=== PATIENT | male | born 1990 | race Caucasian/White ===

== ENCOUNTER 2019-07-06 19:54 | Emergency (ER) | payer OTHER, SELFPAY ==
[2019-07-06 20:01] VITALS: BP 154/93; PULSE 74; RESP 14; TEMP 36.7; O2SAT 97; BMI 26.4
--- NOTE | 2019-07-06 20:01 | ED.GENADULT ---
HPI - General Adult General Chief complaint: Fever Stated complaint: low grade fever, cardiac history Time Seen by Provider: 07/06/19 19:59 Source: patient Mode of arrival: Ambulatory Limitations: no limitations History of Present Illness HPI narrative: 28-year-old male arrives to the emergency department for evaluation of a fever. Patient states that starting this afternoon he started to not feel very well. Had no specific symptoms. He did take a nap. When he woke up they took his temperature at home. His states that his initial temperature was 96? and a follow-up temperature was 97?. They called the nurse advice line at [facility] that advised to come to the emergency department. Patient states that he has a prior cardiac history of atrial fibrillation. Related Data Allergies Allergy/AdvReac Type Severity Reaction Status Date / Time No Known Drug Allergies Allergy Verified 07/06/19 20:01 Review of Systems Constitutional Constitutional: Reports fatigue and Reports fever(s) Cardiovascular Cardiovascular: Denies chest pain and Denies dyspnea Respiratory Respiratory: Denies cough and Denies dyspnea Gastrointestinal Gastrointestinal: Denies abdominal pain, Denies nausea and Denies vomiting Genitourinary Genitourinary: Denies dysuria Musculoskeletal Musculoskeletal: Denies myalgias and Denies arthralgias Integumentary/Breasts Skin/Breast: Denies lesions and Denies rash Neurologic Neurologic: Denies behavioral changes Psychiatric Psychiatric: Denies behavioral changes Endocrine Endocrine: Reports fatigue Hematologic/Lymphatic Hematologic/Lymphatic: Denies easy bleeding and Denies easy bruising Patient History Medical History Atrial fibrillation (Acute) Social History Smoking Status: Unknown if ever smoked Exam Initial Vital Signs Initial Vital Signs: Vital Signs Temperature 98.0 F 07/06/19 20:01 Pulse Rate 74 07/06/19 20:01 Respiratory Rate 14 07/06/19 20:01 Blood Pressure 154/93 H 07/06/19 20:01 Pulse Oximetry 97 07/06/19 20:01 Const General: cooperative, comfortable and well developed Orientation: alert and awake HENMT Head: normal to inspection and normocephalic Resp Effort & Inspection: normal respiratory effort Auscultation: clear to auscultation bilaterally Cardio Rate: regular rate Rhythm: regular rhythm Pulses: radial pulses present GI Inspection: non-distended Palpation: soft and No firm Skin Lesions: no lesions Rashes: no rashes Neuro General: alert and awake Cognition: normal cognition Speech: speech normal Extrem General: normal to inspection and capillary refill normal Psych Appearance: grossly normal and well kempt Course Vital Signs Vital signs: Vital Signs - 8 hr 07/06/19 20:01 Temperature 98.0 F Pulse Rate 74 Respiratory Rate 14 Blood Pressure 154/93 H Pulse Oximetry 97 Medical Decision Making MDM Narrative Medical decision making narrative: Patient is afebrile the emergency department. Not in atrial fibrillation. No specific symptoms concerning for cellulitis, pneumonia, intra-abdominal surgical pathology, meningitis, urinary tract infection. Will hold on further workup for now. Will hold on antibiotics for now. Patient was given return precautions and follow-up instructions. He expressed understanding and agreement plan. Discharge Plan Departure Patient Disposition: Home Clinical Impression: Malaise Discharge Date/Time: 07/06/19 20:20 Instructions: DI for Fever (Symptom) -- Adult Activity Restrictions/Additional Instructions: Your heart rate was normal here in the ER. There were no specific abnormal findings on your exam. I do recommend Tylenol for the body aches. Contact your primary provider for follow-up. Return to the emergency department for any new or worsening symptoms
== END 2019-07-06 20:20 | disposition home or self-care (01) ==
PROVIDERS: Emergency Provider Emergency Medicine
DX: R53.81 Other malaise (principal); R50.9 Fever, unspecified
CPT/HCPCS: 99282

== ENCOUNTER → 2021-04-23 13:28 | Outpatient (CLI) | payer OTHER, SELFPAY ==
[2021-04-23 16:30] LABS: COVID-19 CEPHEID PCR (VTM/NP) POSITIVE (Negative)
== END ==
PROVIDERS: Visit Provider Physician Assistant
DX: U07.1 COVID-19 (principal)
CPT/HCPCS: U0003

== ENCOUNTER 2021-05-24 18:41 | Emergency (ER) | payer OTHER, SELFPAY ==
[2021-05-24 18:54] VITALS: BP 171/109; PULSE 95; RESP 17; TEMP 36.8; O2SAT 99; BMI 29.1
[2021-05-24 19:28] LABS: COVID19 -Nasal RAPID Negative (Negative)
--- NOTE | 2021-05-24 20:18 | ED.SOB ---
HPI - SOB/Dyspnea General Chief Complaint: Shortness of Breath/Dyspnea Stated Complaint: SOB, Just Had COVID Last Month Time Seen by Provider: 05/24/21 20:08 Source: patient Mode of arrival: Ambulatory History of Present Illness HPI Narrative: Patient is a 30-year-old male with recent diagnosis of KIMBERLEY and started on CPAP 1 week ago presenting today with shortness of breath that started today. He had COVID in March he got his COVID vaccination last week. He denies fever or chills. He says today while playing with his [id number] was getting short of breath with very minimal exertion. He denies fever or cough. No hemoptysis. No recent travel no prior history of DVT or PE. He denies any significant chest discomfort. He does have some intermittent pain that is reproducible with movement. Lots of stress at home none they have a just released from the NICU. He spent 2 weeks in the NICU for pulmonary hypertension. They were not allowed to see him because they both had COVID.. He noted that his blood pressure was high thinking that it was from stress for Related Data Allergies Allergy/AdvReac Type Severity Reaction Status Date / Time No Known Drug Allergies Allergy Verified 07/06/19 20:01 Review of Systems Review of Systems Narrative: GENERAL: Denies chills, fatigue, malaise, fever, sweats, travel HEENT: Denies sinus pain, ear pain, sore throat, difficulty swallowing, neck pain RESPIRATORY: See HPI CARDIOVASCULAR: Denies chest pain, palpitations, orthopnea, edema GASTROINTESTINAL: Denies nausea, vomiting, abdominal pain, diarrhea, constipation, melena. : Denies dysuria, frequency, incontinence, hematuria, urinary retention, flank pain. MUSCULOSKELETAL: Denies weakness, joint pain, or bony pain SKIN: No rash, no erythema, no pruritus NEUROLOGIC: Denies weakness, dizziness, headache, numbness, change in speech, confusion PSYCHIATRIC: No concerning psychosocial issues. 12 point review of systems is negative except for those stated above and HPI Patient History Medical History (Updated 05/24/21 @ 21:03 by Yu Stoll DO) Atrial fibrillation Social History Smoking Status: Unknown if ever smoked Smoking Status: Unknown if ever smoked alcohol intake frequency: holidays/special occasions only Substance Use Type: does not use Exam Initial Vital Signs Initial Vital Signs: Vital Signs Temperature 98.2 F 05/24/21 18:54 Pulse Rate 95 H 05/24/21 18:54 Respiratory Rate 17 05/24/21 18:54 Blood Pressure 171/109 H 05/24/21 18:54 Pulse Oximetry 99 05/24/21 18:54 GENERAL: Alert well-appearing 30-year-old in no acute distress. HEENT: Head atraumatic,EOMI, pupils reactive, face symmetric, moist mucous membranes CARDIOVASCULAR: Regular rate and rhythm without murmurs, rubs or gallops. Pain left-sided chest S reproducible palpation RESPIRATORY: Breath sounds equal bilaterally, no wheezes rales or rhonchi. ABDOMEN: Soft, nontender. Normoactive bowel sounds all 4 quadrants. No guarding or rebound. EXTREMITIES: Normal range of motion, no clubbing or edema. Neurovascularly intact NEUROLOGICAL: Alert and oriented x4.Normal gait and speech. SKIN: Warm, dry, no laceration, no petechiae, no rashes or lesions. Scores PERC Score Age greater than or equal to 50 years: No Heart rate greater than or equal to 100 bpm: No Room Air O2 Sat less than 95%: No Unilateral leg swelling: No Recent trauma or surgery: No Hemoptysis: No Prior PE or DVT: No Hormone Use: No Total PERC Score: 0 Course Orders Ordered: ED Orders 05/24/21 18:50 COVID19 -Nasal swab/Pre-Proc Stat 05/24/21 19:21 EKG-12 Lead Stat 05/24/21 20:19 XR chest 2V Stat Discontinued Medications Albuterol (Albuterol Hfa Prepack) 1 box [facility] Stop: 05/24/21 20:20 Last Admin: 05/24/21 20:46 Dose: 1 box Documented by: HARLEY Vital Signs Vital signs: Vital Signs - 8 hr 05/24/21 18:54 05/24/21 21:05 Temperature 98.2 F Pulse Rate 95 H 70 Respiratory Rate 17 18 Blood Pressure 171/109 H 151/80 H Pulse Oximetry 99 99 MDM - SOB/Dyspnea Lab Data Labs: Lab Results 05/24/21 Range/Units 18:50 SARS-CoV-2 (PCR) Negative (Negative) Imaging Data Chest x-ray: Radiologist's Impression: PROCEDURE:? XR CHEST 2V ? INDICATIONS:? short of breath ? TECHNIQUE:? 2 views of the chest were acquired.? ? COMPARISON:? None. ? FINDINGS:? ? Surgical changes and devices:? None.? ? Lungs and pleura:? Lungs are clear.? No pleural effusions or pneumothorax.? ? Mediastinum:? Mediastinal contours are normal.? Heart size is normal.? ? Bones and chest wall:? No suspicious bony abnormalities.? Soft tissues appear unremarkable.? ? IMPRESSION:? No acute cardiopulmonary disease. ? ? Dictated by: Edwardo White M.D. on 05/24/2021 at 20:32 ? ? ECG Data Interpretation: Normal sinus rhythm rate 87 MN interval 144 QRS [address] changes no T-wave inversion MDM Narrative Medical decision making narrative: Patient is complaining of some increased shortness of breath with minimal exertion today. He noticed and blood pressure was a little bit elevated here he thinks that might be contributing. He has no fever or chills. He has a negative PERC. He is not tachycardic or hypoxic care. No recent traveling or increased risk for pulmonary embolism. He is feeling little bit better after the albuterol blood pressure has improved. He does not really have any significant chest discomfort he says he has some mild all left-sided pain but it is definitely reproducible and worse with movement unlikely to be acute coronary syndrome. He is under lot of stress at home. His baby was just released from the NICU have another toddler at home as well. At this point he is overall feeling better and feels ready and able to. Discharge Plan Departure Patient Disposition: Home Clinical Impression: Elevated blood pressure reading Instructions: Essential Hypertension Activity Restrictions/Additional Instructions: *You have been diagnosed with elevated blood pressure *What to do: Shortness of breath may be related to a variety of things. There is no evidence of pneumonia. Her COVID test is negative. It may be related to stress. Please monitor blood pressure at home and record it. He may need adjustment in her blood pressure medication. *Continue to take medications as directed Albuterol inhaler 1-2 puffs every 4 hours only if needed for shortness of breath and only if it helps *Follow up with your primary care provider in 2-3 days *Return to ER if you should have increasing shortness of breath, worsening chest pain, fever or any new, worsening or concerning symptoms Referrals: Miscellaneous,[facility] [Primary Care Provider] -
--- NOTE | 2021-05-24 20:19 | DI.RAD.S_ITS ---
PROCEDURE: XR CHEST 2V INDICATIONS: short of breath TECHNIQUE: 2 views of the chest were acquired. COMPARISON: None. FINDINGS: Surgical changes and devices: None. Lungs and pleura: Lungs are clear. No pleural effusions or pneumothorax. Mediastinum: Mediastinal contours are normal. Heart size is normal. Bones and chest wall: No suspicious bony abnormalities. Soft tissues appear unremarkable. IMPRESSION: No acute cardiopulmonary disease. Dictated by: Edwardo White M.D. on 05/24/2021 at 20:32 Approved by: Edwardo White M.D. on 05/24/2021 at 20:33
[2021-05-24] MEDS: ALBUTEROL HFA PREPACK 1 BOX MISC (20:46)
[2021-05-24 21:05] VITALS: BP 151/80; PULSE 70; RESP 18; O2SAT 99
== END 2021-05-24 21:08 | disposition home or self-care (01) ==
PROVIDERS: Emergency Provider Emergency Medicine
DX: R03.0 Elevated blood-pressure reading, without diagnosis of hypertension (principal); R06.02 Shortness of breath; Z86.16 Personal history of COVID-19; Z20.822 Contact with and (suspected) exposure to COVID-19
CPT/HCPCS: 71046; 87635; 93005; 99283; 99284; C9803